=== PATIENT | male | born 1950 | race Caucasian/White ===

== ENCOUNTER 2016-04-15 11:22 | Day surgery (SDC) | payer OTHER ==
[2016-04-07 12:19] LABS: HEMATOCRIT 43.1 % (40.0-51.0); HEMOGLOBIN 14.4 g/dL (13.6-17.8)
[2016-04-07 12:25] LABS: ASCORBIC ACID (UR NOT ORDER) NEG (NEG); BILIRUBIN, URINE NEGATIVE (NEG); KETONE, URINE NEGATIVE (NEG); LEUKOCYTE ESTERASE(NOT OR NEG (NEG); WBC (NOT ORDERED) (RFLEX) 5 (0-5)
[2016-04-07 12:29] LABS: BUN (BLOOD UREA NITROGEN) 22 MG/DL (6-23); CHLORIDE, SERUM 102 MMOL/L (96-112); CO2 (CARBON DIOXIDE) 26 MMOL/L (24-34); CREATININE 1.09 MG/DL (0.70-1.30); GFR AFRICAN AMERICAN 83 ML/MIN (>=60); GFR NON AFRICAN AMERICAN 71 ML/MIN (>=60); GLUCOSE, SERUM 139 MG/DL (60-99); POTASSIUM, SERUM 4.6 MMOL/L (3.5-5.3); SODIUM, SERUM 139 MMOL/L (135-148)
--- NOTE | ~2016-04-15 | OP ---
Record Of Operation [facility] [address] [place]. [address] NAME: ARIELLE PORTILLO : 54 STATUS : [facility]#: [id number] AGE: 66 ADM/REG DATE : 04/15/16 MR#: [id number] REPORT SERV DATE: 04/15/16 DICTATED BY: MED CAMPBELL DATE: 04/15/16 REPORT STATUS : Draft TRANSCRIBED BY: GRADY DATE: 04/15/16 DATE OF PROCEDURE: 04/15/2016 TITLE OF OPERATION: Cystourethroscopy with bladder biopsy and fulguration. PREOPERATIVE DIAGNOSIS: History of atypical biopsy. POSTOPERATIVE DIAGNOSIS: History of atypical biopsy. INDICATIONS: Mr. Portillo is a 66-year-old male, who has had a prostatectomy. He has chronic cystitis and a low capacity bladder. He had a biopsy which showed atypical squamous cells several months ago. He is here for repeat biopsy to ensure he does not have a squamous cell cancer of his bladder. ANESTHESIA: General. COMPLICATIONS: None. IMPLANTS: None. SPECIMENS: Bladder biopsies. NARRATIVE: The patient was brought to the operating room, identified by his wristband. General anesthesia was induced, and Ancef was given for preoperative antibiotics. He was placed in dorsal lithotomy position, prepped and draped in a sterile fashion. A 22-Mongolian cystoscope was placed into his urethra into his bladder. The prostate was surgically absent. The bladder was notable for small capacity and diffusely erythematous. Two prior biopsy sites were identified and were biopsied sequentially with a flexible biopsy forceps. These biopsies were sent to pathology as bladder biopsies. Using a Bugbee electrode, the biopsy sites were cauterized and hemostasis was obtained. The bladder was drained. The patient was awoken from anesthesia and transferred to recovery room in stable condition. There were no complications. SONJA/GRADY Med Campbell MD / [id number] CC: MD Migue Woodall M.D.
[~2016-04-15 11:22] MED LIST: ACET500CAP PO; AMB10 PO; ANTIBIOTIC; ASAB PO; ATEN25 PO; B12100T PO; BACDS PO; CENTRUM PO; COSAMIN DS1 TAB PO; CRESTOR10 PO; DIL4TAB PO; EFFEXOR XR150 MG PO; FLONASE NAS; GLUCOPHAGE1000 MG PO; GLUCOSAMINEPO; GLUCOSAMINEPO PO; GLUCPH PO; HALF81 PO; LIPITOR40 PO; LOP25 PO; LORT7 PO; NITROSTAT0.4 MG SL; PCET PO; PERCOCET 7.5/321 TAB PO; PLAVIX PO; PRILO PO; PRIN5 PO; PROTONIX PO; RELA5 PO; SENTAB PO; SEPTRA DS1 TAB PO; UROGESIC-BLU OR; VITAMIN B-121000 MC1 SL; X5 PO; ZANTAC 150 PO; ZANTAC150 MG PO; ZOCOR40 PO; ZOFRAN4 PO
[2016-10-15] MEDS ORDERED: FLONASE NAS (15:24)
[2016-10-15] MEDS ORDERED: METHOC500B PO (15:26)
== END 2016-04-15 17:26 | disposition home or self-care (01) ==
LOC: SDC 11:22
PROVIDERS: Urology
PROC: 0TBB8ZX Excision of Bladder, Via Natural or Artificial Opening Endoscopic, Diagnostic (ICD-10-PCS; principal; 2016-04-15 12:45)
DX: C67.9 Malignant neoplasm of bladder, unspecified (principal); G47.33 Obstructive sleep apnea (adult) (pediatric); F41.9 Anxiety disorder, unspecified; E11.9 Type 2 diabetes mellitus without complications; M19.90 Unspecified osteoarthritis, unspecified site; F32.9 Major depressive disorder, single episode, unspecified; Z90.89 Acquired absence of other organs; Z95.5 Presence of coronary angioplasty implant and graft; Z98.890 Other specified postprocedural states; Z90.49 Acquired absence of other specified parts of digestive tract; Z85.46 Personal history of malignant neoplasm of prostate; Z85.51 Personal history of malignant neoplasm of bladder; Z85.820 Personal history of malignant melanoma of skin; Z88.5 Allergy status to narcotic agent; Z91.040 Latex allergy status; Z88.8 Allergy status to other drugs, medicaments and biological substances; Z87.891 Personal history of nicotine dependence; Z79.899 Other long term (current) drug therapy; Z79.82 Long term (current) use of aspirin; Z79.891 Long term (current) use of opiate analgesic; Z79.84 Long term (current) use of oral hypoglycemic drugs
CPT/HCPCS: 80048; 81001; 82962; 85014; 85018; 88305; 93005; A9270-GY; J0690; J2250; J3010; Q9967